=== PATIENT | female | born 1965 ===

== ENCOUNTER 2017-01-10 06:28 | Day surgery (SDC) | payer BC ==
[~2017-01-10 06:28] MED LIST: Buffered Lidocaine 0.9% SYRIN* 5 ML/SYR SYRINGE INTRADERM ONE; Famotidine IV* 10 MG/ML 2 ML (20 mg) IV ONE; Metoclopramide TAB* 10 MG PO ONE
[2017-01-10] MEDS ORDERED: Ketorolac INJ* 30 MG/ML 1 ML VIAL ONE ×2 (06:55→07:22)
[2017-01-10] MEDS ORDERED: Famotidine IV* 10 MG/ML 2 ML (20 mg) ONE (06:55)
[2017-01-10] MEDS ORDERED: ceFAZolin 2 GM PREMIX(*) 2 GM/50 ML BAG IVPB ONE (06:55)
[2017-01-10] MEDS ORDERED: Metoclopramide TAB* 10 MG ONE (06:55)
[2017-01-10] MEDS ORDERED: Buffered Lidocaine 0.9% SYRIN* 5 ML/SYR SYRINGE ONE (06:55)
[2017-01-10] MEDS ORDERED: Propofol* 10 MG/ML 20 ML BTL IV PUSH ONE (07:22)
[2017-01-10] MEDS ORDERED: Dexamethasone IV* 4 MG/ML 1 ML (4 MG) ONE (07:22)
[2017-01-10] MEDS ORDERED: Ondansetron INJ* 2 MG/ML VIAL ONE (07:22)
[2017-01-10] MEDS ORDERED: Lidocaine 2% PF * 5 ML VIAL ONE (07:22)
[2017-01-10] MEDS ORDERED: Midazolam* 1 MG/ML 5 ML VIAL (5 MG) ONE (07:23)
[2017-01-10] MEDS ORDERED: fentaNYL* 50 MCG/ML 2 ML VIAL (100 MCG VIAL) ONE ×2 (07:23→09:26)
[2017-01-10] MEDS ORDERED: KETAMINE HCL* 50 MG/ML 10 ML VIAL ONE (07:23)
[2017-01-10] MEDS ORDERED: Lidocaine 1% INJ* 10 MG/ML 30 ML SDV ONE (07:32)
[2017-01-10] MEDS ORDERED: Bupivacaine 0.5% W/EPI SDV* 10 ML VIAL INJ ONE (07:32)
[2017-01-10] MEDS ORDERED: EPHEDrine (Pressors)* 50 MG/ML VIAL ONE (08:04)
[2017-01-10] MEDS ORDERED: fentaNYL* 50 MCG/ML 2 ML VIAL (100 MCG VIAL) IV PRN (08:22)
[2017-01-10] MEDS ORDERED: Ondansetron INJ* 2 MG/ML VIAL IV PRN (08:22)
[2017-01-10 09:51] VITALS: BP 117/79
--- NOTE | 2017-01-10 17:43 | OP ---
CC: Dr. Lincoln Conway * DATE OF OPERATION: 01/10/17 - [facility] DATE OF : 61 SURGEON: Izaiah Burrows MD [employer] OPERATOR: None. ANESTHESIOLOGIST: Dr. Franco. ANESTHESIA: General anesthetic, local infiltration. PRE-OP DIAGNOSIS: Mass of right posterolateral thigh (dystrophic calcification) . POST-OP DIAGNOSIS: Mass of right posterolateral thigh (dystrophic calcification ). OPERATIVE PROCEDURE: Excision of mass of right posterolateral thigh. DESCRIPTION OF PROCEDURE: The patient was supine on the operative table. After adequate general anesthetic, compression stockings, Christian Hugger warmer, and intravenous antibiotics, she was turned into the lateral decubitus position. The right posterolateral thigh was prepped with antiseptic and draped in a sterile fashion. The patient was also positioned with an axillary roll on the alfredo bag and appropriate padding. The area was anesthetized with local anesthetic and approximately 8-cm incision was created. A mass of dystrophic calcification was readily identified. This measured about 5 x 8 cm in size and was excised in its entirety and sent in formalin for pathologic evaluation. The incision was closed with 4-0 Vicryl and then a 5-0 Vicryl subcuticular followed by Steri-Strips and a gauze dressing. She was awakened and brought to Recovery in good condition. There were no complications. No drains. Pathologic specimen was mass of right thigh. Sponge, instrument counts correct. Estimated blood loss 10 mL. [id number]/CPS #: [id number] MTDD
== END 2017-01-10 09:51 | disposition home or self-care (01) ==
LOC: OR 06:28
PROVIDERS: ATTEND Surgery
DX: M61.9 Calcification and ossification of muscle, unspecified (principal); R01.1 Cardiac murmur, unspecified; E03.9 Hypothyroidism, unspecified; M79.1 Myalgia
CPT/HCPCS: 88305; 88311; A9270-GY; J0690; J1100; J1885; J2001; J2250; J2405; J2704; J3010